=== PATIENT | female | born 1995 | race American Indian/Alaskan Native ===

== ENCOUNTER 2022-05-10 10:21 | Emergency (ER) | payer SELFPAY ==
[2022-05-10 10:31] VITALS: BP 124/67
--- NOTE | 2022-05-10 12:46 | Emergency Department Report ---
ED Headache HPI - General Chief Complaint: Headache Stated Complaint: BLOOD WORK Time Seen by Provider: 05/10/22 12:11 - History of Present Illness Initial Comments: 26-year-old black female with no past medical history presents emergency department for evaluation of headaches. She states that for the past 3 months she has been working in a very moist area that she believes has black mold and for the past 3 to 4 weeks whenever she goes to work, she has headaches. She states that she only has headaches when she is at work, and the headache is usually 10 out of 10. She states that she thinks that headache is related to bl ack mold and is here requesting testing for black mold. She states that the headache is sometimes associated with intermittent shortness of breath and dizziness. She denies fever, vision changes, nausea, and vomiting. Timing/Duration: episodic Head Injury Location: [facility] ED Review of Systems ROS: Stated complaint: BLOOD WORK Other details as noted in HPI Comment: All other systems reviewed and negative Constitutional: denies: chills, fever Eyes: denies: vision change Respiratory: denies: shortness of breath, SOB with exertion, SOB at rest Cardiovascular: denies: chest pain, palpitations Gastrointestinal: denies: abdominal pain, nausea Genitourinary: denies: urgency, dysuria, frequency, hematuria Musculoskeletal: denies: back pain Skin: denies: rash, lesions Neurological: headache. denies: weakness, numbness, paresthesias, confusion Psychiatric: denies: anxiety, depression ED Physical Exam - General Limitations: No Limitations General appearance: alert, in no apparent distress - Head Head exam: Present: atraumatic, normocephalic - Eye Eye exam: Present: normal appearance. Absent: conjunctival injection, periorbital swelling, periorbital tenderness - ENT ENT exam: Present: normal exam, normal orophraynx - Neck Neck exam: Present: normal inspection, full ROM. Absent: tenderness, lymphadenopathy - Respiratory Respiratory exam: Present: normal lung sounds bilaterally. Absent: respiratory distress, wheezes, rales, rhonchi, stridor, chest wall tenderness - Cardiovascular Cardiovascular Exam: Present: regular rate, normal heart sounds. Absent: normal rhythm, bradycardia, tachycardia, irregular rhythm - GI/Abdominal GI/Abdominal exam: Present: soft, normal bowel sounds. Absent: distended, tenderness, guarding, rebound, rigid - Extremities Exam Extremities exam: Present: normal inspection, normal capillary refill. Absent: pedal edema, joint swelling, calf tenderness - Back Exam Back exam: Present: normal inspection. Absent: CVA tenderness (R), CVA tenderness (L), vertebral tenderness - Neurological Exam Neurological exam: Present: alert, oriented X3, CN II-XII intact, normal gait, reflexes normal. Absent: motor sensory deficit - Expanded Neurological Exam Expanded Patient oriented to: Present: person, place, time Speech: Present: fluid speech Cranial nerves: EOM's Intact: Normal, Gag Reflex: Normal, Tongue Deviation: Normal, Nystagmus: Normal Ataxia: Absent: yes Sensory exam: Upper Extremity Light Touch: Normal, Upper Extremity Temperature: Normal, Lower Extremity Light Touch: Normal, Lower Extremity Temperature: Normal Best Eye Response (Mary Jo): (4) open spontaneously Best Motor Response (Sarver): (6) obeys commands Best Verbal Response (Sarver): (5) oriented Sarver Total: 15 - Psychiatric Psychiatric exam: Present: normal affect, normal mood - Skin Skin exam: Present: warm, dry, intact, normal color ED Course Vital Signs 05/10/22 10:26 Temperature 98.1 F Pulse Rate 74 Respiratory 18 Rate Blood Pressure 124/67 [Right] O2 Sat by Pulse 100 Oximetry - Reevaluation(s) Reevaluation #1: 05/10/22 12:44 Denies headache at this time. ED Medical Decision Making - Medical Decision Making 26-year-old black female with no past medical history presents emergency department for evaluation of headaches. She states that for the past 3 months she has been working in a very moist area that she believes has black mold and for the past 3 to 4 weeks whenever she goes to work, she has headaches. She states that she only has headaches when she is at work, and the headache is usually 10 out of 10. She states that she thinks that headache is related to black mold and is here requesting testing for black mold. She states that the headache is sometimes associated with intermittent shortness of breath and dizziness. She denies fever, vision changes, nausea, and vomiting. Physical exam unremarkable. Patient denies headache at this time. She is advised to follow-up at the toxicology clinic at [place] for further evaluation and management or return to the emergency department for any concerning symp toms. She verbalizes understanding agreement with plan of care. Critical care attestation.: If time is entered above; I have spent that time in minutes in the direct care of this critically ill patient, excluding procedure time. ED Disposition Clinical Impression: Headache Qualifiers: Headache type: unspecified Headache chronicity pattern: episodic headache Intractability: not intractable Qualified Code(s): R51.9 - Headache, unspecified Disposition: 01 HOME / SELF CARE / HOMELESS Is pt being admited?: No Does the pt Need Aspirin: No Condition: Stable Instructions: General Headache Without Cause, [id number] Additional Instructions: Follow-up with primary care provider or toxicology clinic. Return to the emergency department as needed. Referrals: epifanio archer [Other] - 3-5 Days (Call to make appointment. ) Forms: Work/School Release Form(ED) Time of Disposition: 12:46
== END 2022-05-10 13:31 | disposition home or self-care (01) ==
LOC: ED 10:21
DX: R51.9 Headache, unspecified (principal); R06.02 Shortness of breath; R42 Dizziness and giddiness
CPT/HCPCS: 99282